=== PATIENT | male | born 1950 | race Caucasian/White ===

== ENCOUNTER 2016-10-04 08:01 | Inpatient (IN) ==
[2016-10-04] MEDS ORDERED: IOPAMIDOL 100 ML BOTTLE IV ONE (08:02)
[2016-10-04] MEDS ORDERED: IPRATROPIUM/ALBUTEROL 3 ML AMPUL.NEB NEB ONE ×4 (08:03→09:30)
--- NOTE | 2016-10-04 08:30 | Emergency Department Note ---
SOB HPI - General Chief Complaint: Shortness of Breath/Dyspnea Stated Complaint: Shortness of breath Time Seen by Provider: 10/04/16 08:11 Source: patient, family Mode of arrival: ambulatory Limitations: other - History of Present Illness The patient is a 65-year-old male who has a history of heavy tobacco abuse who presents with his significant other today with complaint of shortness of breath. Doesn't been present for more than a week at this time. He is reporting having a productive cough with green phlegm. Has felt like he had a fever at home but hasn't checked his temperature. Has shortness of breath with much activity at all and reports feeling lightheaded and not well. He does have a history of being told he has emphysema but is not on medication for it. He stopped smoking approximately 1-2 weeks ago although he "has treated a couple of times." As a history of heavy tobacco abuse and for a large portion of his life was smoking 3 packs per day. Up until a couple of weeks ago he had taper that down about one and half packs per day. Recently started using more chew to replace the cigarettes. His only home medications include Prilosec and Mylanta for reflux symptoms. MD Complaint: shortness of breath, cough Onset (ago): week(s) (>1) Severity: severe Consistency/Duration: constant Improves with: bronchodilators Worsens with: exertion, movement, coughing Known history of: COPD Associated symptoms: Reports: cough, sputum production Treatment prior to arrival: none - Related Data Home oxygen amount: none Home Medications Medication Instructions Recorded Confirmed Omeprazole [PriLOSEC] 20 mg PO ACB 10/04/16 10/04/16 Allergies Allergy/AdvReac Type Severity Reaction Status Date / Time No Known Drug Allergies Allergy Verified 10/04/16 08:06 Review of Systems All systems ED: reviewed and negative except as stated. Past Medical History - Past Medical History Attestation: Yes: The following information was validated with the patient. Medical history: Reports: GERD Surgical history ED: Reports: non-contributory - Social History smoking status: Current every day smoker (until 1 week ago) Packs per day: 1.5 Alcohol use: Reports: Occasionally (2 beers a day) Drug use: Reports: none Physical Exam - General Limitations: other General appearance: alert, other (short of breath, dusky and weathered appearance) - Head Head exam: atraumatic - Eye Eye exam: Present: normal appearance - ENT ENT exam: normal exam - Neck Neck exam: Present: normal inspection - Respiratory Respiratory exam: Present: other (extremely diminished air flow in the lungs diffusely, there is a slight expiratory wheeze in the right upper lobe) - Cardiovascular Cardiovascular exam: Present: normal rhythm, tachycardia - Abdominal Exam Abdominal exam: Present: soft, normal bowel sounds - Neurological Exam Neurological exam: Present: alert, oriented X3 - Psychiatric Psychiatric exam: Present: normal affect, normal mood - Skin Skin exam: Present: warm, dry Course Course Narrative: This is a 65-year-old heavy tobacco abuse history who presents with acute shortness of breath. He presented to the emergency room with a dusky coloration and moving air very poorly. He was placed on supplemental oxygen and given a DuoNeb treatment immediately. Patient endorsed feeling some improvement with the DuoNeb treatment but his lung exam still extremely tight. Lab work and x-rays were ordered. DuoNeb 3, 30 minutes apart were ordered as he had some benefit from the initial treatment. Differential includes COPD exacerbation, pneumonia, sepsis secondary to respiratory source. He was tachycardic on arrival and IV fluids were hung. At the time of end of shift, the patient's lab and imaging workup are still pending. Will sign out to Dr. shaffer to assume care. Vital Signs Temperature 99.8 F H 10/04/16 08:02 Pulse Rate 106 H 10/04/16 08:02 Respiratory Rate 18 10/04/16 08:02 Blood Pressure 129/85 10/04/16 08:02 Pulse Oximetry (%) 89 L 10/04/16 08:02 Temperature 99.8 F H 10/04/16 08:02 Pulse Rate 106 H 10/04/16 08:02 Respiratory Rate 18 10/04/16 08:02 Blood Pressure 129/85 10/04/16 08:02 Pulse Oximetry (%) 89 L 10/04/16 08:02 Disposition Referrals: Chandrakant Hatfield MD [Primary Care Provider] -
[2016-10-04 09:33] LABS: Basophils # (Auto) 0 K/mcL (0.0-0.3); Basophils % (Auto) 0.4 % (0.0-2.0); Eosinophils # (Auto) 0.2 K/mcL (0.0-0.7); Eosinophils % (Auto) 1.5 % (0.0-7.0); Granulocytes % (Auto) 74.3 % (38.0-78.0); Lymphocytes # (Auto) 1.8 K/mcL (1.5-4.8); Lymphocytes % (Auto) 15.9 % (15.5-49.0); Mean Corpuscular HGB Conc 32.1 g/dL (31.0-36.0); Mean Corpuscular Hemoglobin 31.2 pg (26.0-34.0); Monocytes # (Auto) 0.9 K/mcL (0.1-0.9); Monocytes % (Auto) 7.9 % (1.0-9.0); Platelet Count 270 K/mcL (140-440); RBC 4.96 M/mcL (4.50-5.90); Red Cell Distribution Width 12.3 % (11.5-14.5)
[2016-10-04 09:48] LABS: ALT/SGPT 15 U/l (0-40); Albumin 3.8 gm/dL (3.2-5.2); Alkaline Phosphatase 90 U/L (39-117); Blood Urea Nitrogen 13 mg/dl (8-23)
[2016-10-04] MEDS ORDERED: AZITHROMYCIN 500 MG in DEXTROSE 5% IN WATER 250 ML IV ONE (09:51)
[2016-10-04] MEDS ORDERED: methylPREDNISolone SOD SUCC 125 MG/2 ML VIAL IV ONE (09:51)
--- NOTE | 2016-10-04 09:59 | XRay Report ---
CLINICAL INFORMATION: Shortness of breath COMPARISON: 08/11/2012 FINDINGS: Heart size, mediastinum and pulmonary vessels are normal. The lung volumes are mildly elevated and there is mild wall thickening of the bronchi. In addition, suspect bullae in the upper lobes. Findings suggestive of COPD. Small vague patchy infiltrates are seen in the left lower and right midlungs. Small bilateral pleural effusions noted IMPRESSION: Small vague infiltrates in the right mid and left lower lung field. Underlying COPD Interpreted and Authenticated by: Brenton Adames 10/04/16
[2016-10-04] MEDS ORDERED: 0.9 % SODIUM CHLORIDE 1,000 ML IV ONE (11:18)
--- NOTE | 2016-10-04 12:41 | Emergency Department Note ---
SOB HPI - General Chief Complaint: Shortness of Breath/Dyspnea Stated Complaint: Shortness of breath Time Seen by Provider: 10/04/16 08:11 Source: patient, family Mode of arrival: ambulatory Limitations: other - History of Present Illness Severity: severe Improves with: bronchodilators Worsens with: exertion, movement, coughing Associated symptoms: Reports: cough, sputum production Treatment prior to arrival: none - Related Data Home oxygen amount: none Home Medications Medication Instructions Recorded Confirmed Omeprazole [PriLOSEC] 20 mg PO ACB 10/04/16 10/04/16 Allergies Allergy/AdvReac Type Severity Reaction Status Date / Time No Known Drug Allergies Allergy Verified 10/04/16 08:06 Past Medical History - Past Medical History Medical history: Reports: GERD Surgical history ED: Reports: non-contributory - Social History Alcohol use: Reports: Occasionally (2 beers a day) Drug use: Reports: none Physical Exam - General Limitations: other General appearance: alert, other (short of breath, dusky and weathered appearance) Course Vital Signs Temperature 99.8 F H 10/04/16 08:02 Pulse Rate 106 H 10/04/16 08:02 Respiratory Rate 18 10/04/16 08:02 Blood Pressure 129/85 10/04/16 08:02 Pulse Oximetry (%) 89 L 10/04/16 08:02 Temperature 99.9 F H 10/04/16 10:19 Pulse Rate 102 H 10/04/16 11:31 Respiratory Rate 22 10/04/16 11:31 Blood Pressure 140/81 10/04/16 11:31 Pulse Oximetry (%) 95 10/04/16 11:31 Shortness of Breath/Dyspnea - [facility] Narrative Medical decision making narrative: This patient continues to be short of breath and hypoxic off oxygen. We have given him DuoNeb Solu-Medrol and Zithromax and he'll be admitted to the hospital for pneumonia. - Lab Data Lab results reviewed: Yes I reviewed the patient's lab results. Result diagrams: 10/04/16 08:37 10/04/16 08:37 Lab Results 10/04/16 10/04/16 10/04/16 Range/Units 08:37 08:37 08:37 WBC 11.3 H (4.5-11.0) K/mcL RBC 4.96 (4.50-5.90) M/mcL Hgb 15.5 (13.5-16.5) g/dL Hct 48.1 (41.0-55.0) % MCV 97.0 (80.0-100.0) fL MCH 31.2 (26.0-34.0) pg MCHC 32.1 (31.0-36.0) g/dL RDW 12.3 (11.5-14.5) % Plt Count 270 (140-440) K/mcL MPV 8.1 (7.4-10.4) fL Gran % 74.3 (38.0-78.0) % Lymph % (Auto) 15.9 (15.5-49.0) % Dixon % (Auto) 7.9 (1.0-9.0) % Eos % (Auto) 1.5 (0.0-7.0) % Baso % (Auto) 0.4 (0.0-2.0) % Gran # 8.4 H (1.8-8.0) K/mcL Lymph # 1.8 (1.5-4.8) K/mcL Dixon # 0.9 (0.1-0.9) K/mcL Eos # 0.2 (0.0-0.7) K/mcL Baso # 0 (0.0-0.3) K/mcL D-Dimer (0.00-0.40) ug/ml VBG Lactic Acid 1.1 (0.5-2.2) mmol/L Sodium 134 (133-145) mmol/L Potassium 3.7 (3.3-5.1) mmol/L Chloride 93 L (96-108) mmol/L Carbon Dioxide 25 (22-30) mmol/L Anion Gap 16.0 (8-16) BUN 13 (8-23) mg/dl Creatinine 0.9 (0.7-1.2) mg/dl GFR Calculation 89 Glucose 90 (70-105) mg/dL Calcium 9.2 (8.6-10.4) mg/dl Total Bilirubin 0.6 (0.0-1.0) mg/dL AST 16 (0-37) U/l ALT 15 (0-40) U/l Alkaline Phosphatase 90 (39-117) U/L Total Protein 7.6 (5.9-8.4) gm/dL Albumin 3.8 (3.2-5.2) gm/dL Globulin 3.8 H (2.2-3.7) gm/dL Albumin/Globulin Ratio 1.0 (1.0-2.3) Procalcitonin (<0.10) ng/mL 10/04/16 10/04/16 Range/Units 08:37 08:37 WBC (4.5-11.0) K/mcL RBC (4.50-5.90) M/mcL Hgb (13.5-16.5) g/dL Hct (41.0-55.0) % MCV (80.0-100.0) fL MCH (26.0-34.0) pg MCHC (31.0-36.0) g/dL RDW (11.5-14.5) % Plt Count (140-440) K/mcL MPV (7.4-10.4) fL Gran % (38.0-78.0) % Lymph % (Auto) (15.5-49.0) % Dixon % (Auto) (1.0-9.0) % Eos % (Auto) (0.0-7.0) % Baso % (Auto) (0.0-2.0) % Gran # (1.8-8.0) K/mcL Lymph # (1.5-4.8) K/mcL Dixon # (0.1-0.9) K/mcL Eos # (0.0-0.7) K/mcL Baso # (0.0-0.3) K/mcL D-Dimer 0.90 H (0.00-0.40) ug/ml VBG Lactic Acid (0.5-2.2) mmol/L Sodium (133-145) mmol/L Potassium (3.3-5.1) mmol/L Chloride (96-108) mmol/L Carbon Dioxide (22-30) mmol/L Anion Gap (8-16) BUN (8-23) mg/dl Creatinine (0.7-1.2) mg/dl GFR Calculation Glucose (70-105) mg/dL Calcium (8.6-10.4) mg/dl Total Bilirubin (0.0-1.0) mg/dL AST (0-37) U/l ALT (0-40) U/l Alkaline Phosphatase (39-117) U/L Total Protein (5.9-8.4) gm/dL Albumin (3.2-5.2) gm/dL Globulin (2.2-3.7) gm/dL Albumin/Globulin Ratio (1.0-2.3) Procalcitonin 0.11 (<0.10) ng/mL - Radiology Data Radiology results reviewed: Yes I reviewed the patient's radiology results. ( chest x-ray and CT scan confirms bilateral infiltrates without other pathology) Disposition Clinical Impression: Community acquired pneumonia Disposition: Xfer As Outpt/Obs ([facility]) Condition: Good Referrals: Chandrakant Hatfield MD [Primary Care Provider] - Time of Disposition: 12:41
--- NOTE | 2016-10-04 13:45 | Internal Med History&Physical ---
Medical - H&P: [facility] Patient information: Note initiated : 10/04/16 at 1:41 pm Service Date, if different from initiated Date: [] Patient: Khanh Monaco 65 y/o M admitted on for Shortness of breath. Chief Complaint: [] History of present illness: Mr. Monaco is a 65 year old male who is a long-term smoker, and was told sometime ago by his primary care physician that he probably had COPD. He has not really had aggressive treatment for that. He presented to the emergency room today, reporting that he has had increasingly productive cough, shortness of breath fever and chills for the last 8-9 days. He has been using [id number] cold medications without any success. He has been feeling a little bit dizzy when he stands up. Cough is productive of greenish yellow phlegm. He is noticing increasingly severe dyspnea with exertion. He's had some very slight diarrhea, but no nausea or vomiting.In the emergency room he was found to be hypoxic on room air, as well as tachypnea and tachycardic. Chest x-ray suggestive of bilateral pneumonia. Otherwise, he denies headaches, new eye or ear symptoms sore throat. He does have a history of poor dentition. He denies neck pain or lymphadenopathy, chest pain or palpitations, abdominal pain, nausea or vomiting, diarrhea or constipation, dysuria. He does have chronic intermittent reflux issues, for which he takes Prilosec and Mylanta.He says he has been smoking between one and 3 packs of cigarettes per day since the age of 14, but did quit smoking about 1 month ago. Unfortunately he started chewing tobacco, and uses about 1 can every 3 days. Past medical history: COPD likely emphysema, based on chest x-ray. Past history of reflux and peptic ulcer disease Long-standing history of tobacco abuse, quit 1 month ago Now using chewing tobacco. Daily alcohol use. Current medications: Prilosec 20 mg daily Mylanta when necessary Allergies: No known drug allergies Family history: Patient's father with Alzheimer's disease His mother with some sort of intra-abdominal cancer. He has 1 brother whose health is unknown. He does not have children. Social history: The patient lives with his girlfriend. He has an approximately [id number] smoking history, but quit one month ago. He does use chewing tobacco now. He drinks between 0 and 3 drinks per day, usually beer or whiskey. He does not use illegal drugs. 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 Medical - H&P: Meds Home Medications Medication Instructions Recorded Confirmed Type Omeprazole [PriLOSEC] 20 mg PO ACB 10/04/16 10/04/16 History Allergies Allergy/AdvReac Type Severity Reaction Status Date / Time No Known Drug Allergies Allergy Verified 10/04/16 08:06 Medical - H&P: Exam - Constitutional Vitals: Temp Pulse Resp BP Pulse Ox 99.9 F H 93 H 16 133/73 95 10/04/16 10:19 10/04/16 12:40 10/04/16 12:40 10/04/16 12:40 10/04/16 12:40 Exam: on exam, he is a well-developed well-nourished man in no acute distress. Head: Normocephalic, atraumatic. Eyes: PERRLA, EOMI, anicteric. Ears: TMs and canals are clear. Pharynx: Teeth are in only fair condition, and numerous teeth are missing. Pharynx is clear. neck: Is supple, without obvious lymphadenopathy, JVD, bruits. thyroid gland appears a bit full on the right side. Cardiac exam: Shows regular rate and rhythm, with normal S1 and S2. No murmurs , rubs, gallops are noted. Lungs:Have rather decreased breath sounds throughout, with soft end expiratory wheezes. There are a few crackles noted at the right base. Abdomen: Is soft and nontender, without obvious masses. Bowel sounds are normoactive. Extremities: Show no cyanosis, clubbing, edema. Pulses are intact. Neurologic exam: Is grossly nonfocal. Skin exam: Shows no rashes or other worrisome lesions. Medical - H&P: Reslt - Labs CBC & Chem 7: 10/04/16 08:37 10/04/16 08:37 Labs: Short CBC 10/04/16 Range/Units 08:37 WBC 11.3 H (4.5-11.0) K/mcL Hgb 15.5 (13.5-16.5) g/dL Hct 48.1 (41.0-55.0) % Plt Count 270 (140-440) K/mcL BMP 10/04/16 08:37 Sodium 134 Potassium 3.7 Chloride 93 L Carbon Dioxide 25 BUN 13 Creatinine 0.9 Glucose 90 Calcium 9.2 Liver Function 10/04/16 Range/Units 08:37 Total Bilirubin 0.6 (0.0-1.0) mg/dL AST 16 (0-37) U/l ALT 15 (0-40) U/l Alkaline Phosphatase 90 (39-117) U/L Albumin 3.8 (3.2-5.2) gm/dL am told his O2 saturations were in the mid 80s on room air on arrival. he is also tachycardic. CBC differential shows 8400 neutrophils. D-dimer is elevated at 0.90X Lactic acid is normal at 1.1 Globulin fraction is elevated at 3.8 eKG showsnormal sinus rhythm at a rate of about 100. No acute ST-T changes are noted chest x-ray from October 04, 2016: There are small vague patchy infiltrates seen in the left lower and right mid lungand small bilateral pleural effusions. Lung volumes are elevatedand there is bronchial wall thickening and upper lobe bullae , consistent with COPD. CT angiogram of the chest, by verbal report, shows no PE. Formal report is pending. Medical - H&P: A/P (1) COPD (chronic obstructive pulmonary disease) with emphysema Current visit: Yes Status: Acute (2) Tobacco abuse Current visit: Yes Status: Acute (3) GERD (gastroesophageal reflux disease) Current visit: Yes Status: Acute (4) Community acquired pneumonia Current visit: Yes Status: Acute - Narrative A/P Narrative: #1. Pulmonary/infectious disease -this patient presents with dyspnea and hypoxia, and radiologic evidence for probable bilateral pneumonia, community-acquired.. -he will likely need inpatient management with IV antibiotics aggressive bronchodilator treatment and pulmonary toilet and oxygen, and is admitted for same.- -He likely has underlying emphysema. He will likely require bronchodilator treatment at home after discharge. -He also presents with SIRS criteria. his started on IV fluids and IV antibiotics. Continue to monitor. -He will also be offered a pneumonia vaccine #2. Tobacco abuse. -he reports he is abstinent from cigarettes, but is using chewing tobacco.Offer NicoDerm patch. he declines NicoDerm patch at this time. -Encourage total abstinence. we discussed the risks associated both with cigarette use as well as with chewing tobacco. He is encouraged to stop all of these. #3. CODE STATUS:full code. 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 #4. DVT prophylaxis: Subcutaneous Lovenox. #5.elevated globulin fraction Recheck after hydration. This visit took approximately 60 minutes, to review his case with the ER He, review his test results, interview and examine him, and write orders.
[2016-10-04 13:48] LABS: Appearance,Urine CLEAR; Bilirubin,Urine NEG (NEG); Color,Urine YELLOW; Glucose,Urine (UA) NEGATIVE (NEG); Leukocyte Esterase,Urine NEG /uL (NEG); Nitrate,Urine NEG (NEG); Protein,Urine NEG (NEG); Specific Gravity,Urine 1.019 (1.000-1.035); Urine Blood NEG mg/dL (<0.03); Urobilinogen,Urine NEG (NEG)
[2016-10-04] MEDS ORDERED: ALBUTEROL SULFATE 2.5 MG/3 ML NEBULIZER NEB PRN (14:50)
[2016-10-04] MEDS ORDERED: ONDANSETRON 4 MG/2 ML VIAL IV PRN (14:50)
[2016-10-04] MEDS ORDERED: PNEUMOCOCCAL 23-VAL P-SAC VAC 0.5 ML VIAL IM ONE (14:50)
[2016-10-04] MEDS ORDERED: MAGNESIUM HYDROXIDE 30 ML ORAL.SUSP PO PRN (14:50)
[2016-10-04] MEDS ORDERED: DOCUSATE SODIUM 100 MG CAPSULE PO PRN (14:50)
[2016-10-04] MEDS ORDERED: ACETAMINOPHEN 325 MG TABLET PO PRN (14:50)
[2016-10-04] MEDS ORDERED: HYDROcodone/APAP 5/325MG TABLET PO PRN (14:50)
[2016-10-04] MEDS ORDERED: NALOXONE HCL 0.4 MG/ML VIAL IV PRN (14:50)
[2016-10-04] MEDS: cefTRIAXone 1 GM in DEXTROSE 5% IN WATER 50 ML IV SCH (16:01)
[2016-10-04] MEDS: 0.9 % SODIUM CHLORIDE 10 ML SYRINGE IV SCH ×2 (17:14→21:00)
[2016-10-04] MEDS: IPRATROPIUM/ALBUTEROL 3 ML AMPUL.NEB NEB SCH ×2 (17:51→23:18)
[2016-10-04 18:31] LABS: Hemoglobin A1C 5.5 % HGB (4.0-6.0)
--- NOTE | 2016-10-04 19:18 | Cat Scan Report ---
CLINICAL INFORMATION: Shortness of breath - evaluate for pulmonary embolus COMPARISON: None TECHNIQUE: Axial images obtained through the chest. 80 cc intravenous contrast administration was administered, and scanning was performed during pulmonary arterial phase. Sagittally and coronally reformatted images were obtained. MIP reformatted images. FINDINGS: The central pulmonary arteries are mildly enlarged - main pulmonary diameter is 3 cm. Pulmonary arteries are well-opacified - no evidence of embolus. The thoracic aorta is normal in contour/caliber with minimal intimal thickening. The heart is normal in size and configuration without identifiable plaque seen in the visualized proximal coronary arteries. There are no abnormally enlarged lymph nodes in the mediastinal, hilar or axillary regions. The thyroid is normal. Pulmonary parenchymal windows show moderate centrilobular emphysema changes featuring multiple bullae predominantly in the upper lobes, elevated lung volumes, chronic bronchitis and scattered scarring. There is a moderate sized alveolar infiltrate in the peripheral posterior right lower lobe with smaller patchy infiltrate in the right middle lobe. The MIP images show tree-in-bud centrilobular airspace disease throughout the right middle, both lower lobes and the lingula. There are no nodules. No effusions. Bones and soft tissues the chest wall are remarkable only for mild degenerative disc disease in mid LAD lower thoracic spine with anterior marginal osteophytes. Imaged through the upper abdomen show a 10 mm cyst lateral segment left hepatic lobe.. IMPRESSION: 1. No evidence of pulmonary embolus 2. Moderate centrilobular emphysema changes. Mild enlargement of the central pulmonary artery suggests pulmonary hypertension related to COPD. 3. Moderate sized consolidated alveolar infiltrate in the peripheral right lower lobe with very vague tree-in-bud centrilobular infiltrates throughout both lower, right middle lobe and lingula. Consider aspiration or multifocal pneumonia. Subsegmental atelectasis also noted in the inferior left lower lobe Interpreted and Authenticated by: Brenton Adames 10/04/16
[2016-10-05 05:32] LABS: Basophils # (Auto) 0 K/mcL (0.0-0.3); Basophils % (Auto) 0.1 % (0.0-2.0); Eosinophils # (Auto) 0.1 K/mcL (0.0-0.7); Eosinophils % (Auto) 0.9 % (0.0-7.0); Granulocytes % (Auto) 89.4 % (38.0-78.0); Lymphocytes # (Auto) 0.7 K/mcL (1.5-4.8); Lymphocytes % (Auto) 6.9 % (15.5-49.0); Mean Cell Volume 96.5 fL (80.0-100.0); Mean Corpuscular HGB Conc 32.7 g/dL (31.0-36.0); Mean Corpuscular Hemoglobin 31.6 pg (26.0-34.0); Monocytes # (Auto) 0.3 K/mcL (0.1-0.9); Monocytes % (Auto) 2.7 % (1.0-9.0); Platelet Count 269 K/mcL (140-440); RBC 4.47 M/mcL (4.50-5.90); Red Cell Distribution Width 12.4 % (11.5-14.5)
[2016-10-05] MEDS: 0.9 % SODIUM CHLORIDE 10 ML SYRINGE IV SCH ×3 (06:01→20:33)
[2016-10-05 06:03] LABS: ALT/SGPT 15 U/l (0-40); Albumin 3.5 gm/dL (3.2-5.2); Alkaline Phosphatase 78 U/L (39-117); Blood Urea Nitrogen 15 mg/dl (8-23)
[2016-10-05] MEDS: IPRATROPIUM/ALBUTEROL 3 ML AMPUL.NEB NEB SCH ×3 (06:59→23:04)
--- NOTE | 2016-10-05 07:33 | XRay Report ---
CLINICAL INFORMATION: Pneumonia. Follow-up. TECHNIQUE: AP portable upright chest x-ray COMPARISON: Previous chest x-rays dated 10/04/2016. Previous chest CT scan dated 10/04/2016. FINDINGS: There is a history of emphysema. Bilateral, bibasilar pulmonary parenchymal infiltrates are essentially unchanged since 10/04/2016. No new abnormalities. No focal consolidation. No parenchymal mass. Heart size and vascularity are normal. No pulmonary congestion. No pulmonary edema. IMPRESSION: 1. Emphysema 2. Mild bibasilar infiltrates consistent with pneumonia 3. No significant interval change since 10/04/2016 Interpreted and Authenticated by: Brenton Calixto 10/05/16
[2016-10-05] MEDS: PANTOPRAZOLE 40 MG TABLET PO SCH (07:50)
[2016-10-05] MEDS: ENOXAPARIN 40 MG/0.4 ML SYRINGE SQ SCH (09:08)
[2016-10-05] MEDS: cefTRIAXone 1 GM in DEXTROSE 5% IN WATER 50 ML IV SCH (09:08)
[2016-10-05] MEDS: AZITHROMYCIN 500 MG in DEXTROSE 5% IN WATER 250 ML IV SCH (10:44)
--- NOTE | 2016-10-05 13:22 | Internal Med Progress Note ---
Medical - PN: Subj Patient information: Note initiated : 10/05/16 at 1:19 pm Service Date, if different from initiated Date: [] Patient: Khanh Monaco 65 y/o M admitted on 10/04/16 for Shortness of Breath/ COPD, Pneumonia. Chief Complaint: [] Interval history: 10/04/16:History of present illness: Mr. Monaco is a 65 year old male who is a long-term smoker, and was told sometime ago by his primary care physician that he probably had COPD. He has not really had aggressive treatment for that. He presented to the emergency room today, reporting that he has had increasingly productive cough, shortness of breath fever and chills for the last 8-9 days. He has been using naxa-hlk-vclinea cold medications without any success. He has been feeling a little bit dizzy when he stands up. Cough is productive of greenish yellow phlegm. He is noticing increasingly severe dyspnea with exertion. He's had some very slight diarrhea, but no nausea or vomiting.In the emergency room he was found to be hypoxic on room air, as well as tachypnea and tachycardic. Chest x-ray suggestive of bilateral pneumonia. Otherwise, he denies headaches, new eye or ear symptoms sore throat. He does have a history of poor dentition. He denies neck pain or lymphadenopathy, chest pain or palpitations, abdominal pain, nausea or vomiting, diarrhea or constipation, dysuria. He does have chronic intermittent reflux issues, for which he takes Prilosec and Mylanta.He says he has been smoking between one and 3 packs of cigarettes per day since the age of 14, but did quit smoking about 1 month ago. Unfortunately he started chewing tobacco, and uses about 1 can every 3 days. 10/05/16: Today, the patient notes he is feeling much better than yesterday. He continues to have a severe cough, which is productive of small amounts of sputum. He denies current subjective fever or chills. He continues to note dyspnea with exertion, even to the bathroom. Otherwise he denies chest pain, abdominal pain, nausea or vomiting, diarrhea or constipation, dysuria. Past medical history: COPD likely emphysema, based on chest x-ray. Past history of reflux and peptic ulcer disease Long-standing history of tobacco abuse, quit 1 month ago Now using chewing tobacco. Daily alcohol use. - Constitutional Vitals: Vital Signs Temp Pulse Resp BP Pulse Ox 98.0 F 92 H 20 128/68 94 10/05/16 11:29 10/05/16 11:29 10/05/16 11:29 10/05/16 11:29 10/05/16 11:29 Period Temp Pulse Resp BP Sys/Vazquez Pulse Ox Last 24 Hr 97.4 F-98.8 F 65-93 16-24 128-149/68-91 92-96 Intake and Output 10/04/16 10/05/16 10/05/16 21:59 05:59 13:59 Intake Total 850 / 850 120 / 120 360 / 360 Output Total 750 / 750 250 / 250 Balance 100 / 100 -130 / -130 360 / 360 Weight 195 lb 14.4 oz 195 lb 14.4 oz Patient Weight 10/06/16 05:59 Weight 195 lb 14.4 oz Intake & Output: Intake & Output 10/04/16 10/05/16 10/05/16 21:59 05:59 13:59 Intake Total 850 / 850 120 / 120 360 / 360 Output Total 750 / 750 250 / 250 Balance 100 / 100 -130 / -130 360 / 360 Weight 195 lb 14.4 oz 195 lb 14.4 oz Intake: IV 50 / 50 Dextrose 5% in Water 50 50 / 50 ml @ 100 mls/hr IV Q24H AIS[facility] with Rocephin 1 gm Rx #:[id number] Oral 800 / 800 120 / 120 360 / 360 Output: Void Amount 750 / 750 250 / 250 Other: Meal Dinner Nourishment/Supplement Lunch Percent of Meal Consumed 75% 100% 50% Feeding Ability Independent Independent Independent # Voids 1 Exam: on exam, he is a well-developed man in no acute distress. He does cough very frequently when I'min the room. Neck is supple without obvious lymphadenopathy. Cardiac exam shows regular rate and rhythm. Lung exam shows somewhat decreased breath sounds, with fairly diffuse coarse breath sounds and scattered crackles. Abdomen is soft and nontender. Extremities show no significant edema. Neurologic exam is grossly nonfocal Medical - PN: Obj Da - Labs CBC & Chem 7: 10/05/16 04:34 10/05/16 04:34 Labs: Abnormal Lab Results 10/05/16 10/05/16 04:34 04:34 RBC 4.47 L Gran % 89.4 H Lymph % (Auto) 6.9 L Gran # 9.5 H Lymph # 0.7 L Glucose 215 H 10/05: -Gram stain of his sputum shows moderate polysand rare gram-negative bacilli. No pathogens are isolated so far. -blood cultures are negative so far. -chest x-ray from this morning shows bilateral bibasilar infiltrates, unchanged from yesterday. Also emphysema 10/04/16: I was told his O2 saturations were in the mid 80s on room air on arrival. he is also tachycardic. CBC differential shows 8400 neutrophils. D-dimer is elevated at 0.90 Lactic acid is normal at 1.1 Globulin fraction is elevated at 3.8 eKG showsnormal sinus rhythm at a rate of about 100. No acute ST-T changes are noted chest x-ray from October 04, 2016: There are small vague patchy infiltrates seen in the left lower and right mid lungand small bilateral pleural effusions. Lung volumes are elevatedand there is bronchial wall thickening and upper lobe bullae , consistent with COPD. CT angiogram of the chest, by verbal report, shows no PE. Formal report is pending. Meds: Medications Acetaminophen (Tylenol) 650 mg PO Q6HP PRN PRN Reason: PAIN/FEVER > 101 Acetaminophen/Hydrocodone Bitart (Galva 5/325mg) 1 tab PO Q4HP PRN PRN Reason: Pain Albuterol Sulfate (Ventolin) 2.5 mg NEB Q2HP PRN PRN Reason: Shortness Of Breath Albuterol/Ipratropium (Duoneb) 3 ml NEB Q8H [facility] Last Admin: 10/05/16 06:59 Dose: 3 ml Docusate Sodium (Colace) 100 mg PO BID PRN PRN Reason: Constipation Enoxaparin Sodium (Lovenox) 40 mg SQ DAILY [facility] Last Admin: 10/05/16 09:08 Dose: 40 mg Azithromycin 500 mg/ Dextrose 250 mls @ 250 mls/hr IV Q24H [facility] Stop: 10/07/16 10:59 Last Admin: 10/05/16 10:44 Dose: 250 mls/hr Ceftriaxone Sodium 1 gm/ (Dextrose) 50 mls @ 100 mls/hr IV Q24H [facility] Last Admin: 10/05/16 09:08 Dose: 100 mls/hr Magnesium Hydroxide (Milk Of Magnesia) 30 ml PO DAILYP PRN PRN Reason: Constipation Naloxone HCl (Narcan) 0.1 mg IV Q2MIN PRN PRN Reason: Opiate Reversal Ondansetron HCl (Zofran) 4 mg IV Q6HP PRN PRN Reason: Nausea And Vomiting Pantoprazole Sodium (Protonix) 40 mg PO QAMAC [facility] Last Admin: 10/05/16 07:50 Dose: Not Given Sodium Chloride (Saline Flush) 10 ml IV Q8 [facility] Last Admin: 10/05/16 06:01 Dose: 10 ml Medical - PN: A/P - Time Spent With Patient Total time spent is greater than 50% in coordination of care (as documented) at patient's floor/unit and/or counseling patient: 15 - 24 minutes (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 Pulmonary/infectious disease -this patient presents with dyspnea and hypoxia, and radiologic evidence for probable bilateral pneumonia, community-acquired.. -the patient was admitted for aggressive treatment with bronchodilators, pulmonary toilet, IV antibiotics, oxygen. He appears to be responding nicely to treatment, but is still quite symptomatic. -I believe he met sirs criteria yesterday, which has resolved. -He will also be offered a pneumonia vaccine #2. Tobacco abuse. -he reports he is abstinent from cigarettes, but is using chewing tobacco.Offer NicoDerm patch. he declines NicoDerm patch at this time. -Encourage total abstinence. we discussed the risks associated both with cigarette use as well as with chewing tobacco. He is encouraged to stop all of these. #3. CODE STATUS:full code. He is encouraged to clarify with us who he would like to have his medical power of assistant prosecuting attorney. #4. DVT prophylaxis: Subcutaneous Lovenox. #5.elevated globulin fraction --resolved to normal today, after hydration. Medical - PN: Qual - VTE Deep Vein Thrombosis/Pulmonary Embolism Present on Admission: No
[2016-10-06 05:28] LABS: Basophils # (Auto) 0 K/mcL (0.0-0.3); Basophils % (Auto) 0.4 % (0.0-2.0); Eosinophils # (Auto) 0.1 K/mcL (0.0-0.7); Eosinophils % (Auto) 0.7 % (0.0-7.0); Granulocytes % (Auto) 70.9 % (38.0-78.0); Lymphocytes # (Auto) 2.6 K/mcL (1.5-4.8); Lymphocytes % (Auto) 22.2 % (15.5-49.0); Mean Cell Volume 97.4 fL (80.0-100.0); Mean Corpuscular HGB Conc 32.2 g/dL (31.0-36.0); Mean Corpuscular Hemoglobin 31.4 pg (26.0-34.0); Monocytes # (Auto) 0.7 K/mcL (0.1-0.9); Monocytes % (Auto) 5.8 % (1.0-9.0); Platelet Count 325 K/mcL (140-440); RBC 4.21 M/mcL (4.50-5.90); Red Cell Distribution Width 12.6 % (11.5-14.5)
[2016-10-06 05:50] LABS: ALT/SGPT 48 U/l (0-40); Albumin 3.4 gm/dL (3.2-5.2); Alkaline Phosphatase 73 U/L (39-117); Blood Urea Nitrogen 18 mg/dl (8-23)
[2016-10-06] MEDS: 0.9 % SODIUM CHLORIDE 10 ML SYRINGE IV SCH ×2 (06:14→17:33)
[2016-10-06] MEDS: IPRATROPIUM/ALBUTEROL 3 ML AMPUL.NEB NEB SCH ×5 (06:59→22:28)
[2016-10-06] MEDS: PANTOPRAZOLE 40 MG TABLET PO SCH (07:14)
[2016-10-06] MEDS: cefTRIAXone 1 GM in DEXTROSE 5% IN WATER 50 ML IV SCH (10:31)
[2016-10-06] MEDS: ENOXAPARIN 40 MG/0.4 ML SYRINGE SQ SCH (10:31)
[2016-10-06] MEDS: AZITHROMYCIN 500 MG in DEXTROSE 5% IN WATER 250 ML IV SCH (11:30)
[2016-10-06] MEDS: predniSONE 20 MG TABLET PO SCH (12:07)
--- NOTE | 2016-10-06 12:20 | Internal Med Progress Note ---
Medical - PN: Subj Patient information: Note initiated : 10/06/16 at 12:18 pm Service Date, if different from initiated Date: [] Patient: Khanh Monaco 65 y/o M admitted on 10/04/16 for Shortness of Breath/ COPD, Pneumonia. Chief Complaint: [] Interval history: 10/04/16:History of present illness: Mr. Monaco is a 65 year old male who is a long-term smoker, and was told sometime ago by his primary care physician that he probably had COPD. He has not really had aggressive treatment for that. He presented to the emergency room today, reporting that he has had increasingly productive cough, shortness of breath fever and chills for the last 8-9 days. He has been using [id number]-jpb-[id number] cold medications without any success. He has been feeling a little bit dizzy when he stands up. Cough is productive of greenish yellow phlegm. He is noticing increasingly severe dyspnea with exertion. He's had some very slight diarrhea, but no nausea or vomiting.In the emergency room he was found to be hypoxic on room air, as well as tachypnea and tachycardic. Chest x-ray suggestive of bilateral pneumonia. Otherwise, he denies headaches, new eye or ear symptoms sore throat. He does have a history of poor dentition. He denies neck pain or lymphadenopathy, chest pain or palpitations, abdominal pain, nausea or vomiting, diarrhea or constipation, dysuria. He does have chronic intermittent reflux issues, for which he takes Prilosec and Mylanta.He says he has been smoking between one and 3 packs of cigarettes per day since the age of 14, but did quit smoking about 1 month ago. Unfortunately he started chewing tobacco, and uses about 1 can every 3 days. 10/05/16: Today, the patient notes he is feeling much better than yesterday. He continues to have a severe cough, which is productive of small amounts of sputum. He denies current subjective fever or chills. He continues to note dyspnea with exertion, even to the bathroom. Otherwise he denies chest pain, abdominal pain, nausea or vomiting, diarrhea or constipation, dysuria. 10/06: Pt doing well, feels better but still has significant cough, and sob on minimal activity. he was noted to have been drinking etoh yesterday as brought by his friend, warned regarding not brining alcohol from outside. Pt notes that it will not happen again. Exam shows slime rhonchi, proloned exp phase. no wheezing. Will start on prednisone po 40mg qd and start on scheduled duonebs q4 hrs Pertinent ROS: Denies headache, dizziness Denies chest pain, palpitations present cough and shortness of breath on exertion Denies abdominal pain, nausea or vomiting. - Constitutional Vitals: Vital Signs Temp Pulse Resp BP Pulse Ox 98.3 F 59 L 22 139/85 92 10/06/16 12:00 10/06/16 12:00 10/06/16 12:00 10/06/16 12:00 10/06/16 12:00 Period Temp Pulse Resp BP Sys/Vazquez Pulse Ox Last 24 Hr 97.4 F-98.4 F 59-102 11-24 107-139/65-85 84-93 Intake and Output 10/05/16 10/06/16 10/06/16 21:59 05:59 13:59 Intake Total 800 / 800 700 / 700 Output Total 200 / 200 1 / 1 Balance 600 / 600 699 / 699 Weight 196 lb Intake & Output: Intake & Output 10/05/16 10/06/16 10/06/16 21:59 05:59 13:59 Intake Total 800 / 800 700 / 700 Output Total 200 / 200 1 / 1 Balance 600 / 600 699 / 699 Weight 196 lb Intake: Oral 800 / 800 700 / 700 Output: Void Amount 200 / 200 # of times incontinent of 1 / 1 urine Other: # Voids 1 Exam: Constitutional; Afebrile, cooperative, alert, not in distress. Eyes- No icterus, Pupils equal, reactive, No periorbital swelling Ears- Ext ear normal, hearing normal to conversation. Neck- Midline trachea, supple Respiratory system: Air Entry equal on both sides, mild rhonchi on exam both sides, prolonged exp phase noted. CVS- Rate rhythm regular, S1,S2 heard, no gallop, no rub. 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 Medical - PN: Obj Da - Labs CBC & Chem 7: 10/06/16 04:19 10/06/16 04:19 Labs: Abnormal Lab Results 10/06/16 10/06/16 10/05/16 04:19 04:19 04:34 WBC 11.6 H RBC 4.21 L Hgb 13.2 L Gran % Lymph % (Auto) Gran # 8.2 H Lymph # Anion Gap 17.0 H Glucose 215 H AST 47 H ALT 48 H 10/05/16 04:34 WBC RBC 4.47 L Hgb Gran % 89.4 H Lymph % (Auto) 6.9 L Gran # 9.5 H Lymph # 0.7 L Anion Gap Glucose AST ALT Meds: Medications Acetaminophen (Tylenol) 650 mg PO Q6HP PRN PRN Reason: PAIN/FEVER > 101 Acetaminophen/Hydrocodone Bitart (Lester 5/325mg) 1 tab PO Q4HP PRN PRN Reason: Pain Albuterol/Ipratropium (Duoneb) 3 ml NEB Q4HRT [facility] Last Admin: 10/06/16 11:02 Dose: 3 ml Docusate Sodium (Colace) 100 mg PO BID PRN PRN Reason: Constipation Enoxaparin Sodium (Lovenox) 40 mg SQ DAILY [facility] Last Admin: 10/06/16 10:31 Dose: 40 mg Azithromycin 500 mg/ Dextrose 250 mls @ 250 mls/hr IV Q24H [facility] Stop: 10/07/16 10:59 Last Admin: 10/06/16 11:30 Dose: 250 mls/hr Ceftriaxone Sodium 1 gm/ (Dextrose) 50 mls @ 100 mls/hr IV Q24H [facility] Last Admin: 10/06/16 10:31 Dose: 100 mls/hr Magnesium Hydroxide (Milk Of Magnesia) 30 ml PO DAILYP PRN PRN Reason: Constipation Naloxone HCl (Narcan) 0.1 mg IV Q2MIN PRN PRN Reason: Opiate Reversal Ondansetron HCl (Zofran) 4 mg IV Q6HP PRN PRN Reason: Nausea And Vomiting Pantoprazole [facility] ([facility]ix) [facility] Last Admin: 10/06/16 07:14 Dose: 40 mg Pred[facility]one (Pred[facility]one) [facility] Last Admin: 10/06/16 12:07 Dose: 40 mg Sodium Chloride (Saline Flush) 10 ml IV Q8 [facility] Last Admin: 10/06/16 06:14 Dose: 10 ml Medical - PN: A/P - Time Spent With Patient Total time spent is greater than 50% in coordination of care (as documented) at patient's floor/unit and/or counseling patient: (1) Alcohol abuse Status: Acute Current Visit: Yes (2) COPD exacerbation Status: Acute Current Visit: Yes (3) Community acquired pneumonia Status: Acute Current Visit: Yes - Narrative A/P Narrative: CAP on rocephin and zithromax for same D3 today COPD exacderbation- steroids, duonebs and antibiotics, suipplemental oxygen provided. Continue to monitor Aggressive pulmonary toilet . Medical - PN: Qual - VTE Deep Vein Thrombosis/Pulmonary Embolism Present on Admission: No
[2016-10-07] MEDS: 0.9 % SODIUM CHLORIDE 10 ML SYRINGE IV SCH ×2 (00:33→06:16)
[2016-10-07] MEDS: IPRATROPIUM/ALBUTEROL 3 ML AMPUL.NEB NEB SCH ×3 (03:49→10:59)
[2016-10-07 06:38] LABS: Basophils # (Auto) 0 K/mcL (0.0-0.3); Basophils % (Auto) 0.3 % (0.0-2.0); Eosinophils # (Auto) 0 K/mcL (0.0-0.7); Eosinophils % (Auto) 0.5 % (0.0-7.0); Granulocytes % (Auto) 73.6 % (38.0-78.0); Lymphocytes # (Auto) 1.5 K/mcL (1.5-4.8); Lymphocytes % (Auto) 16.5 % (15.5-49.0); Mean Cell Volume 96.5 fL (80.0-100.0); Mean Corpuscular HGB Conc 32.8 g/dL (31.0-36.0); Mean Corpuscular Hemoglobin 31.7 pg (26.0-34.0); Monocytes # (Auto) 0.8 K/mcL (0.1-0.9); Monocytes % (Auto) 9.1 % (1.0-9.0); Platelet Count 391 K/mcL (140-440); RBC 4.29 M/mcL (4.50-5.90); Red Cell Distribution Width 12.6 % (11.5-14.5)
[2016-10-07] MEDS: PANTOPRAZOLE 40 MG TABLET PO SCH (06:50)
[2016-10-07 06:58] LABS: ALT/SGPT 53 U/l (0-40); Albumin 3.5 gm/dL (3.2-5.2); Alkaline Phosphatase 77 U/L (39-117); Blood Urea Nitrogen 23 mg/dl (8-23)
[2016-10-07] MEDS: predniSONE 20 MG TABLET PO SCH (08:31)
[2016-10-07] MEDS: ENOXAPARIN 40 MG/0.4 ML SYRINGE SQ SCH (08:31)
[2016-10-07] MEDS ORDERED: PNEUMOCOCCAL 23-VAL P-SAC VAC 0.5 ML VIAL IM ONE (09:00)
[2016-10-07] MEDS: cefTRIAXone 1 GM in DEXTROSE 5% IN WATER 50 ML IV SCH (09:37)
[2016-10-07] MEDS: AZITHROMYCIN 500 MG in DEXTROSE 5% IN WATER 250 ML IV SCH (10:14)
--- NOTE | 2016-10-07 10:18 | Discharge Summary ---
Medical - DS: Prov Patient information: Note initiated : 10/07/16 at 10:15 am Service Date, if different from initiated Date: [] Patient: Khanh Monaco 65 y/o M admitted on 10/04/16 for Shortness of Breath/ COPD, Pneumonia. Chief Complaint: [] Date of admission: 10/04/16 14:42 Discharge date: 10/07/16 Primary care physician: [f_Reg Prim Care Provider] Admitting clinician: Pooja Jacques Discharging clinician: Heidy Cuevas Medical - DS: Meds - Discharge Medications Prescriptions: Ipratropium/Albuterol Sulfate [Combivent] 2 puff INH QID #1 inhaler Levofloxacin [Levaquin] 750 mg PO DAILY #4 tablet predniSONE [Prednisone] 40 mg PO QAMCC #8 tablet Active and Home Medications: Home Medications Aluminum Hydroxide 30 ml PO QIDP PRN 10/04/16 [History Confirmed 10/04/16 Last Taken 10/03/16] Omeprazole [PriLOSEC] 20 mg PO ACB 10/04/16 [History Confirmed 10/04/16 Last Taken 10/03/16] Medical - DS: Hosp Hospital course: Mr. Monaco is a 65 year old male admitted to the hospital for cough/ sob. X ray showed bibasilar PNA, he was needing oxygen and therefore was admitted to the hospital for further management. PNA- Community acquired pna, with increased oxygen requirements. Pt treated with rocephin and zithromax. Responded to treawtment well. Microbiology reported negative so far. Patient clinically improved. On day of discharge his Oxygen was 93% on RA, which I expect to improve. He will be discharged on levofloxacin for another 4 days. COPD- He likely has copd, cough and increased expiration. He will take prednisone for total of 5 days. He will also be discharged on a combivent inhaler. Educated to quit smoking permanently. The patient may benefit from a PFT as outpatient once stable. The patient seems to have an issue with etoh consumption. In the hospital his friend got him some etoh. Educated patient regarding same. The rest of the patients stay was uneventful. Discharge diagnosis: Pneumonia - Time Spent with Patient Total time spent providing and/or coordinating discharge services: Less than 30 minutes Medical - DS: Exam - Constitutional Vitals: Vital Signs Temp Pulse Pulse Resp BP Pulse Ox 10/07/16 07:48 78 10 L 10/07/16 07:29 91 10/07/16 07:16 98.3 F 18 138/84 90 10/07/16 06:59 79 16 90 10/07/16 03:49 98.3 F 87 16 144/88 94 10/07/16 00:00 97.6 F 99 H 22 135/87 95 10/06/16 23:05 91 10/06/16 22:34 91 H 16 10/06/16 19:43 98.1 F 95 H 22 154/84 94 10/06/16 19:21 94 10/06/16 18:55 92 H 16 10/06/16 18:49 94 10/06/16 18:48 94 10/06/16 16:00 98.1 F 87 22 139/79 95 10/06/16 14:42 88 16 10/06/16 14:37 95 10/06/16 12:00 98.3 F 59 L 22 139/85 92 10/06/16 11:05 93 10/06/16 11:02 93 H 11 L Intake and Output 10/06/16 10/07/16 10/07/16 21:59 05:59 13:59 Intake Total 800 / 800 500 / 500 540 / 540 Output Total 350 / 350 250 / 250 Balance 450 / 450 250 / 250 540 / 540 Intake: IV 0 / 0 Dextrose 5% in Water 50 0 / 0 ml @ 100 mls/hr IV Q24H [facility] with Rocephin 1 gm Rx #:[id number] Oral 800 / 800 500 / 500 540 / 540 Output: Void Amount 350 / 350 250 / 250 Other: Meal Dinner Breakfast Percent of Meal Consumed 100% 100% Feeding Ability Independent # Voids 1 # Bowel Movements 1 Weight 199 lb 8 oz Additional comments: Constitutional; Afebrile, cooperative, alert, not in distress. Eyes- No icterus, Pupils equal, reactive, No periorbital swelling Ears- Ext ear normal, hearing normal to conversation. Neck- Midline trachea, supple Respiratory system: Air Entry equal on both sides, No crackles or wheezing, no rhonchi. CVS- Rate rhythm regular, S1,S2 heard, no gallop, no rub. 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 Medical - DS: Data Labs on day of discharge: Labs from last 24 hours 10/07/16 10/07/16 03:57 03:57 WBC 9.1 RBC 4.29 L Hgb 13.6 Hct 41.4 MCV 96.5 MCH 31.7 MCHC 32.8 RDW 12.6 Plt Count 391 MPV 7.8 Gran % 73.6 Lymph % (Auto) 16.5 Daniels % (Auto) 9.1 H Eos % (Auto) 0.5 Baso % (Auto) 0.3 Gran # 6.7 Lymph # 1.5 Daniels # 0.8 Eos # 0 Baso # 0 Sodium 140 Potassium 3.8 Chloride 99 Carbon Dioxide 26 Anion Gap 15.0 BUN 23 Creatinine 0.9 GFR Calculation 89 Glucose 88 Calcium 9.0 Total Bilirubin 0.2 AST 38 H ALT 53 H Alkaline Phosphatase 77 Total Protein 6.9 Albumin 3.5 Globulin 3.4 Albumin/Globulin Ratio 1.0 - Additional Comments X ray chest- Bibasilar infiltrates. Medical - DS: A/P - Patient/Caregiver Discharge Instructions Activity: increase activity as tolerated Diet: Regular Diet Additional Instructions: Follow up with PCP in 7-10 days GO to the ER if Fever, worsening shortness of breath or Chest pains. - Problem Maintenance (1) Alcohol abuse Status: Acute (2) COPD exacerbation Status: Acute (3) Community acquired pneumonia Status: Acute - Follow up Plan Follow up with: Chandrakant Hatfield MD [Primary Care Provider] - Disposition: Home, Self-Care Prognosis: Fair Rehab Potential: Fair I certify that the patient requires SNF services: No Overall status at discharge: patient is progressing back to baseline Medical - DS: Qual - VTE Deep Vein Thrombosis/Pulmonary Embolism Present on Admission: No
== END 2016-10-07 11:35 | disposition home or self-care (01) | DRG 190 ==
LOC: ED 08:01 → MEDSUR 14:40
PROVIDERS: ADMIT Internal Medicine; ATTEND Internal Medicine

== ENCOUNTER 2024-05-15 13:25 | Inpatient (IN) ==
[2024-05-15] MEDS ORDERED: IOPAMIDOL 100 ML BOTTLE IV ONE (13:26)
[2024-05-15 14:52] LABS: Basophils # (Auto) 0.02 K/mcL (0.00-0.30); Basophils % (Auto) 0.3 % (0.0-2.0); Eosinophils # (Auto) 0.07 K/mcL (0.00-0.70); Eosinophils % (Auto) 1.1 % (0.0-7.0); Hematocrit 38.7 % (40.1-51.0); Hemoglobin 13.2 g/dL (13.7-17.5); Lymphocytes # (Auto) 1.54 K/mcL (1.50-4.80); Lymphocytes % (Auto) 23.5 % (15.5-49.0); Mean Cell Volume 96.3 fL (80.0-100.0); Mean Corpuscular HGB Conc 34.1 g/dL (31.0-36.0); Mean Platelet Volume 9.5 fL (8.8-12.5); Monocytes # (Auto) 0.58 K/mcL (0.10-0.90); Monocytes % (Auto) 8.9 % (1.0-12.0); Neutrophils % (Auto) 65.7 % (38.0-78.0); Platelet Count 199 K/mcL (140-440); RBC 4.02 M/mcL (4.63-6.08); Red Cell Distribution Width 12.4 % (11.5-14.5); WBC 6.5 K/mcL (4.5-11.0)
[2024-05-15 15:16] LABS: ALT/SGPT 34 U/L (<40); AST/SGOT 48 U/L (<40); Albumin 4.2 gm/dL (3.2-5.2); Albumin/Globulin Ratio 1.4 (1.0-2.3); Alkaline Phosphatase 81 U/L (39-117); Bilirubin,Total 0.4 mg/dL (0.1-1.0); Blood Urea Nitrogen 12 mg/dL (8-23); Calcium 9.4 mg/dL (8.6-10.4); Carbon Dioxide 25 mmol/L (22-30); Chloride 98 mmol/L (96-108); Globulin 3.1 gm/dL (2.2-3.7); Glomerular Filtration Rate 93; Glucose 90 mg/dL (70-105); Potassium 3.4 mmol/L (3.3-5.1); Sodium 137 mmol/L (133-145)
[2024-05-15] MEDS: LORazepam 2 MG/ML VIAL IV ONE ×2 (15:23→15:40)
[2024-05-15 20:23] LABS: Thyroid Stimulating Hormone 2.53 uIU/mL (0.27-5.01)
[2024-05-15 20:42] LABS: HDL Cholesterol 87 mg/dL (>40); LDL Cholesterol,Calculated 126 mg/dL (<100); Non-HDL Cholesterol 147 mg/dL (<130); Triglycerides 108 mg/dL (<150)
[2024-05-15 21:44] LABS: Estimated Average Glucose(eAG) 97 mg/dL
[2024-05-15] MEDS ORDERED: MAGNESIUM HYDROXIDE 30 ML ORAL.SUSP PO PRN (21:44)
[2024-05-15] MEDS ORDERED: ONDANSETRON 4 MG/2 ML VIAL IV PRN (21:44)
[2024-05-15] MEDS ORDERED: ACETAMINOPHEN 325 MG TABLET PO PRN (21:44)
[2024-05-15] MEDS ORDERED: SENNOSIDES 1 TABLET PO PRN (21:44)
[2024-05-15] MEDS ORDERED: 0.9 % SODIUM CHLORIDE 10 ML SYRINGE IV SCH (22:00)
[2024-05-15] MEDS: DOCUSATE SODIUM 100 MG CAPSULE PO SCH (22:42)
[2024-05-15] MEDS: NICOTINE 14 MG PATCH TOPICAL SCH (22:42)
[2024-05-15] MEDS: HEPARIN 5,000 UNIT/ML VIAL SQ SCH (22:52)
[2024-05-15] MEDS: THIAMINE 100 MG/ML VIAL ONE (23:07)
[2024-05-15] MEDS: THIAMINE 200 MG in 0.9 % SODIUM CHLORIDE 50 ML IV ONE (23:14)
[2024-05-16] MEDS: 0.9 % SODIUM CHLORIDE 10 ML SYRINGE IV SCH (00:26)
[2024-05-16] MEDS: LORazepam 2 MG/ML VIAL IV PRN (04:32)
[2024-05-16 07:05] LABS: Basophils # (Auto) 0.02 K/mcL (0.00-0.30); Basophils % (Auto) 0.4 % (0.0-2.0); Eosinophils # (Auto) 0.14 K/mcL (0.00-0.70); Eosinophils % (Auto) 2.5 % (0.0-7.0); Hematocrit 34.8 % (40.1-51.0); Hemoglobin 11.6 g/dL (13.7-17.5); Lymphocytes # (Auto) 1.62 K/mcL (1.50-4.80); Lymphocytes % (Auto) 28.7 % (15.5-49.0); Mean Cell Volume 99.7 fL (80.0-100.0); Mean Corpuscular HGB Conc 33.3 g/dL (31.0-36.0); Mean Platelet Volume 9.6 fL (8.8-12.5); Monocytes # (Auto) 0.59 K/mcL (0.10-0.90); Monocytes % (Auto) 10.5 % (1.0-12.0); Neutrophils % (Auto) 57.5 % (38.0-78.0); Platelet Count 182 K/mcL (140-440); RBC 3.49 M/mcL (4.63-6.08); Red Cell Distribution Width 12.7 % (11.5-14.5); WBC 5.6 K/mcL (4.5-11.0)
[2024-05-16 07:37] LABS: ALT/SGPT 27 U/L (<40); AST/SGOT 37 U/L (<40); Albumin 3.5 gm/dL (3.2-5.2); Albumin/Globulin Ratio 1.3 (1.0-2.3); Alkaline Phosphatase 71 U/L (39-117); Bilirubin,Total 0.5 mg/dL (0.1-1.0); Blood Urea Nitrogen 10 mg/dL (8-23); Calcium 8.7 mg/dL (8.6-10.4); Carbon Dioxide 26 mmol/L (22-30); Chloride 100 mmol/L (96-108); Globulin 2.7 gm/dL (2.2-3.7); Glomerular Filtration Rate 93; Glucose 87 mg/dL (70-105); Potassium 3.7 mmol/L (3.3-5.1); Sodium 137 mmol/L (133-145)
[2024-05-16] MEDS: CLOPIDOGREL 75 MG TABLET PO SCH (08:50)
[2024-05-16] MEDS: GABAPENTIN 100 MG CAPSULE PO SCH (08:50)
[2024-05-16] MEDS: ASPIRIN 81 MG TAB.CHEW CHEWED SCH (08:50)
[2024-05-16] MEDS: ETHYL ALCOHOL 30 ML ORAL.SOL PO SCH ×2 (08:53→17:06)
[2024-05-16] MEDS ORDERED: THIAMINE 100 MG/ML VIAL IV SCH (09:00)
[2024-05-16] MEDS: THIAMINE 100 MG in 0.9 % SODIUM CHLORIDE 50 ML IV SCH (10:47)
[2024-05-16] MEDS: LOSARTAN 25 MG TABLET PO SCH (15:45)
[2024-05-16] MEDS: CARVEDILOL 3.125 MG TABLET PO SCH (17:06)
[2024-05-16] MEDS: ATORVASTATIN 40 MG TABLET PO SCH (21:39)
[2024-05-17 06:46] LABS: Basophils # (Auto) 0.02 K/mcL (0.00-0.30); Basophils % (Auto) 0.4 % (0.0-2.0); Eosinophils # (Auto) 0.14 K/mcL (0.00-0.70); Eosinophils % (Auto) 2.7 % (0.0-7.0); Hematocrit 37.2 % (40.1-51.0); Hemoglobin 12.5 g/dL (13.7-17.5); Lymphocytes # (Auto) 1.62 K/mcL (1.50-4.80); Lymphocytes % (Auto) 30.7 % (15.5-49.0); Mean Cell Volume 100.3 fL (80.0-100.0); Mean Corpuscular HGB Conc 33.6 g/dL (31.0-36.0); Mean Platelet Volume 9.8 fL (8.8-12.5); Monocytes # (Auto) 0.52 K/mcL (0.10-0.90); Monocytes % (Auto) 9.9 % (1.0-12.0); Neutrophils % (Auto) 55.7 % (38.0-78.0); Platelet Count 178 K/mcL (140-440); RBC 3.71 M/mcL (4.63-6.08); Red Cell Distribution Width 12.4 % (11.5-14.5); WBC 5.3 K/mcL (4.5-11.0)
[2024-05-17 07:27] LABS: ALT/SGPT 29 U/L (<40); AST/SGOT 42 U/L (<40); Albumin 3.6 gm/dL (3.2-5.2); Albumin/Globulin Ratio 1.4 (1.0-2.3); Alkaline Phosphatase 72 U/L (39-117); Bilirubin,Total 0.4 mg/dL (0.1-1.0); Blood Urea Nitrogen 10 mg/dL (8-23); Calcium 8.9 mg/dL (8.6-10.4); Carbon Dioxide 25 mmol/L (22-30); Chloride 101 mmol/L (96-108); Globulin 2.6 gm/dL (2.2-3.7); Glomerular Filtration Rate 93; Glucose 92 mg/dL (70-105); Potassium 4.1 mmol/L (3.3-5.1); Sodium 138 mmol/L (133-145)
== END 2024-05-17 14:15 | disposition home or self-care (01) | DRG 65 ==
LOC: ED 13:25 → MEDSUR 21:37
PROVIDERS: ADMIT Student in an Organized Health Care Education/Training Program; ATTEND Student in an Organized Health Care Education/Training Program